=== PATIENT | male | born 1990 | race Caucasian/White ===

== ENCOUNTER 2021-08-15 11:46 | Emergency (ER) | payer OTHER, SELFPAY ==
[2021-08-15 11:55] VITALS: BP 144/92; PULSE 88; RESP 19; TEMP 36.6; O2SAT 97; BMI 37.2
--- NOTE | 2021-08-15 12:08 | ECG_ITS ---
Test Reason : tased Blood Pressure : / mmHG Vent. Rate : 085 BPM Atrial Rate : 085 BPM P-R Int : 160 ms QRS Dur : 102 ms QT Int : 358 ms P-R-T Axes : 031 017 006 degrees QTc Int : 426 ms Normal sinus rhythm Normal EKG No previous ECGs available Referred By: Elaine Eddy Electronically Signed By:DIANE HU
--- NOTE | 2021-08-15 12:10 | ED_ITS ---
HPI - General Adult General Chief complaint: General Medical Stated complaint: tazed Time Seen by Provider: 08/15/21 12:08 Source: patient Mode of arrival: ambulatory Limitations: no limitations History of Present Illness HPI narrative: This is a 31-year-old male with no known medical history presenting to he emergency department status post work related injury with complaints of right- sided arm pain status post being tased in the arm. 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 He tells me he is having 10/10 pain in the little bit of tingling to his right arm. Denies chest pain, shortness of breath, fevers, chills, nausea, vomiting, diarrhea, weakness, headache, dizziness. Patient did not fall no LOC. Onset (ago): hour(s) (1) Location: right and upper extremity Radiation: non-radiation Severity: moderate Quality: constant Pain Consistency: constant Relieving factors: none Exacerbating factors: none Associated symptoms: denies other symptoms Treatments prior to arrival: none Related Data Allergies Allergy/AdvReac Type Severity Reaction Status Date / Time Unable to Assess Allergy Verified 08/15/21 12:08 Review of Systems Verdana 4l Review of Systems: Verdana 4d Verdana 4d Constitutional : No Weight loss, No Fever, No Chills, No Fatigue, No Malaise ENT/Mouth : No sore throat, No Rhinorrhea Eyes: No Eye Pain, No Swelling, No Redness Cardiovascular : No Chest Pain, No SOB, No Dyspnea on Exertion, No OrthopneaOrthopnea, No Edema, No Palpitations Respiratory : No Cough, No Sputum, No Wheezing Gastrointestinal : No Nausea, No Vomiting, No Diarrhea, No Constipation, No abdominal Pain, No Hematochezia, No Melena Genitourinary : No Dysuria, No Urinary Frequency, No Hematuria, Musculoskeletal : No joint pain, No Myalgias, No Joint Swelling, + right arm pain Skin : No Skin Lesions, No rash Neuro : No Weakness, No Numbness, No Dizziness, No Headache All other systems reviewed and are negative Yes all other systems are reviewed and are negative PMFSH Past Medical History Attestation statement: The following information was validated with the patient. Source: old records reviewed and nursing notes reviewed Medical History (Updated 08/15/21 @ 12:15 by IMANI Zambrano) Anxiety Sleep apnea Social History Social History Advance Directives: No Advance Directives Information Provided: No Physical Exam Verdana 4l Vital Signs: Verdana 4d Verdana 4d Vital Signs: Verdana 4d Verdana 4Bd Last Vital Signs Verdana 4d Clinical Systems Analyst New 4d Clinical Systems Analyst New 4d Temp 98 F 08/15/21 11:55 Clinical Systems Analyst New 4d Pulse 88 08/15/21 11:55 Clinical Systems Analyst New 4d Resp 19 08/15/21 11:55 BP 144/92 H 08/15/21 11:55 Pulse Ox 97 08/15/21 11:55 BMI result Body Mass Index 37.2 VSS Appearance: Alert.? Oriented X3.? No acute distress.? Head: Normocephalic, atraumatic, no step-offs or deformities Eyes: Pupils equal, round and reactive to light.? ENT: Pharynx normal.? Neck: Normal inspection.? Neck supple.? CVS: Normal heart rate and rhythm.? Pulses normal.? Respiratory: No respiratory distress.? Breath sounds normal.? Abdomen: Soft and nontender.? Skin: Skin warm and dry.? Normal skin color.? Normal skin turgor.? Extremities: No lower extremity edema.? No calf ttp. 5/5 strength to bilateral upper and lower extremities Back: No midline tenderness, no C-spine tenderness, full range of motion, no CVA tenderness bilaterally Neuro: Oriented X 3.? No motor deficit.? No sensory deficit. Course Reevaluation(s) Reevaluation #1: EKG nonischemic. Toradol given with relief. Patient is safe for discharge home with PCP follow-up. I have also advised him to follow-up with the were connection. Comfortable with discharge home. Time: 13:05 Medical Decision Making MDM Narrative Medical decision making narrative: 1213 31 yo m presents with right hand pain s/p being tazed in the right arm PE benign Plan- EKG and toradol Medical Records Medical records reviewed: Yes I reviewed the patient's medical records. Lab Data Lab results reviewed: Yes I reviewed the patient's lab results. ECG Data Attestation: I personally reviewed and interpreted this ECG as follows: Prior ECG tracings: not available for review Interpretation: Ventricular rate of 85, IL normal, QRS normal, QT / QTC normal. EKG shows normal sinus rhythm, no ST elevations or inversions concerning for ischemia. Previous to compare with Critical Care Time Critical Care Time Critical Care Time: No Discharge Plan Discharge Clinical Impression: Electric shock caused by Taser, Work related injury Patient Disposition: Home, Self-Care Additional Instructions: Take your medications as prescribed. If you were prescribed antibiotics today, it is important that you take your medication to their entirety, do not skip any doses, do not finish them early. Follow-up with your primary care provider this week. follow-up with the were connection at [facility] phone # [phone] Return to the emergency department with new or worsening symptoms. In case of emergency call 911 Referrals: Trisha Beth NP [Primary Care Provider] - 2 days Stand Alone Forms: Work/School Release
[2021-08-15] MEDS: Ketorolac Tromethamine 30 MG/ML VIAL IM (12:24)
--- NOTE | 2021-08-15 13:25 | MHC.MBSS ---
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 Patient felt shock travel up right arm. Reports continued right arm pain. Denies other symptoms. Respirations regular and even. Skin PWD. Alert and oriented. Patient medicated with Toradol, tolerated well. EKG obtained.
== END 2021-08-15 13:29 | disposition home or self-care (01) ==
PROVIDERS: Emergency Provider Emergency Medicine; PCP Nurse Practitioner Family
DX: S49.91XA Unspecified injury of right shoulder and upper arm, initial encounter (principal); M79.601 Pain in right arm; Y29.XXXA Contact with blunt object, undetermined intent, initial encounter; Y93.9 Activity, unspecified; Y92.9 Unspecified place or not applicable; Y99.0 Civilian activity done for income or pay
CPT/HCPCS: 93005; 96372; 99284; J1885

== ENCOUNTER 2021-09-26 05:28 | Emergency (ER) | payer OTHER, SELFPAY ==
--- NOTE | ~2021-09-26 | XR_ITS ---
EXAMINATION: XR ANKLE, RIGHT CLINICAL INFORMATION: Swelling, heard pop COMPARISON: None TECHNIQUE: AP, lateral, and mortise views of the right ankle. FINDINGS: Osseous alignment is anatomic. Joint spaces are maintained. No acute fracture is seen. Mild soft tissue swelling is noted about the ankle. XR/XR ankle RT min 3V IMPRESSION: Mild soft tissue swelling without acute osseous findings.
[2021-09-26 05:33] VITALS: BP 123/78; PULSE 92; RESP 16; TEMP 36.4; O2SAT 98; BMI 37.2
--- NOTE | 2021-09-26 05:59 | PC.NURSE ---
pt to room #1 with c/o ankle pain and ankle swelling since yesterday. pt alert, respirations easy, n/l. skin w/d. pt refusing ice pack at this time. pt awaiting for 's eval.
--- NOTE | 2021-09-26 06:23 | ED_ITS ---
HPI - Extremity Injury (Lower) General Chief Complaint: Extremity Injury, Lower Stated Complaint: swollen/broken ankle Time Seen by Provider: 09/26/21 06:20 Source: patient Mode of arrival: ambulatory Limitations: no limitations History of Present Illness HPI Narrative: Patient comes to emergency room complaining of right-sided ankle pain. Patient states that yesterday he stepped into a hockey-stick and sprained his ankle. Patient denies any injuries anywhere else. Patient complaining of pain in the lateral malleolus. Patient is able to bear weight. Related Data Allergies Allergy/AdvReac Type Severity Reaction Status Date / Time No Known Allergies Allergy Verified 09/26/21 05:36 Review of Systems Review of Systems: Constitutional : No Weight loss, No Fever, No Chills, No Night Sweats, No Fatigue, No Malaise ENT/Mouth : No Hearing loss, No Ear Pain, No Nasal Congestion, No Sinus Pain, No Hoarseness, No sore throat, No Rhinorrhea, No Swallowing Difficulty Eyes: No Eye Pain, No Swelling, No Redness, No Foreign Body, No Discharge, No Vision Changes Cardiovascular : No Chest Pain, No SOB, No Dyspnea on Exertion, No Orthopnea, No Edema, No Palpitations Respiratory : No Cough, No Sputum, No Wheezing, No Smoke Exposure, No Dyspnea Gastrointestinal : No Nausea, No Vomiting, No Diarrhea, No Constipation, No abdominal Pain, No Hematochezia, No Melena Genitourinary : no irregular bleeding, No Dysuria, No Urinary Frequency, No Hematuria, No Urinary Incontinence, No Urgency, No Flank Pain, No Urinary Flow Changes, No Hesitancy Musculoskeletal : Complaining of right ankle pain, No Myalgias, No Joint Swelling Skin : No Skin Lesions, No rash Neuro : No Weakness, No Numbness, No Paresthesias, No Loss of Consciousness, No Dizziness, No Headache Psych : No Anxiety/Panic, No Depression, No SI/HI/AH/VH, No Social Issues, Heme/Lymph: No Bruising, No Bleeding,No Lymphadenopathy Endocrine : No Polyuria, No Polydipsia, No Temperature Intolerance [facility] Past Medical History Medical History Anxiety Sleep apnea Social History Social History Alcohol intake: never Patient Tobacco Use Status: Never used Tobacco Advance Directives: No Advance Directives Information Provided: Yes Physical Exam Vital Signs: Vital Signs: Last Vital Signs Temp 97.6 F 09/26/21 05:33 Pulse 92 09/26/21 05:33 Resp 16 09/26/21 05:33 BP 123/78 09/26/21 05:33 Pulse Ox 98 09/26/21 05:33 BMI result Body Mass Index 37.2 Const: Other: Appearance: Alert. Oriented X3. No acute distress. Eyes: Pupils equal, round and reactive to light. ENT: Pharynx normal. Neck: Normal inspection. Neck supple. No lymph nodes noted. No crepitus CVS: Normal heart rate and rhythm. Pulses normal. Normal S1 and S2 Respiratory: No respiratory distress. Breath sounds normal. No Wheezing. No rales Abdomen: Soft and nontender. No rigidity. No distention. Skin: Skin warm and dry. Normal skin color. Normal skin turgor. Extremities: Pain to palpation over the lateral malleolus on the right ankle, mild swelling, patient able to bear weight, walk limping. Neuro: Oriented X 3. No motor deficit. No sensory deficit. Moving all extremities. No slurred speech. CN 2 through 12 grossly intact Psych: calm, cooperative, normal affect Course Course Course Narrative: I discussed the x-ray with the patient, no fracture. Patient states that he is able to bear weight, declined crutches, states he has ibuprofen and Tylenol at home. MDM - Extremity Injury (Lower) Imaging Data Ankle x-ray: Radiologist's impression: Osseous alignment is anatomic. Joint spaces are maintained. No acute fracture is seen. Mild soft tissue swelling is noted about the ankle. XR/XR ankle RT min 3V IMPRESSION: Mild soft tissue swelling without acute osseous findings Discharge Plan Discharge Clinical Impression: Ankle sprain and strain Patient Disposition: Home, Self-Care Instructions: Ankle Sprain (ED) Additional Instructions: Please follow-up with your primary care physician tomorrow. If you have any worsening or new symptoms, please return to the emergency room or call 911
== END 2021-09-26 07:01 | disposition home or self-care (01) ==
PROVIDERS: Emergency Provider Emergency Medicine
DX: S93.401A Sprain of unspecified ligament of right ankle, initial encounter (principal); X58.XXXA Exposure to other specified factors, initial encounter; Y93.9 Activity, unspecified; Y92.9 Unspecified place or not applicable; Y99.9 Unspecified external cause status
CPT/HCPCS: 73610; 99283

== ENCOUNTER 2022-12-04 12:16 | Emergency (ER) | payer OTHER, SELFPAY ==
[2022-12-04 12:20] VITALS: BP 147/89; PULSE 99; RESP 18; TEMP 37; O2SAT 99; BMI 36.6
--- NOTE | 2022-12-04 12:48 | ED_ITS ---
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 Patient immediately irrigated both eyes in oral cavity. No obvious blood was mostly gastric contents. Patient denies any medical history other than sleep apnea no other complaints this time. Patient was advised bites department to be evaluated. Related Information Allergies Allergy/AdvReac Type Severity Reaction Status Date / Time No Known Allergies Allergy Verified 09/26/21 05:36 Review of Systems Review of Systems: General: No fever, no chills Ophthalmology: No vision changes, no discharge ENT: No sore throat, no ear pain Cardiovascular: No chest pain Respiratory: No dyspnea GI: No nausea vomiting PMFSH Past Medical History Attestation statement: The following information was validated with the patient. Medical History Anxiety Sleep apnea Social History Social History Alcohol intake: never Patient Tobacco Use Status: Never used Tobacco Advance Directives: No Advance Directives Information Provided: Yes Physical Exam Vital Signs: Vital Signs: Last Vital Signs Temp 98.6 F 12/04/22 12:20 Pulse 99 12/04/22 12:20 Resp 18 12/04/22 12:20 BP 147/89 H 12/04/22 12:20 Pulse Ox 99 12/04/22 12:20 O2 Del Method Room Air 12/04/22 12:20 BMI result Body Mass Index 36.6 General appearance: Awake, alert, cooperative, in no acute distress Skin: Warm, dry, no rash Eyes: PERRL, EOMI, no icterus ENT: Oropharynx normal, uvula midline Neck: Soft supple full range of motion Extremities: Patient ambulatory moving all extremities Neuro: Alert oriented x3, no focal deficit Psych: Normal affect Course Course Course Narrative: Body fluid exposure Prophylaxis 32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 Patient states droplets his eyes and oral cavity which immediately irrigated patient states overall was a low amount of exposure. Case discussed with Dr. Mireles please overall exposure very low risk. Would not add prophylaxis at this time patient feels comfortable without prophylaxis. Case discussed at length with patient. Will check baseline labs at this time the CBC CMP hepatitis panel and HIV. For follow-up with [facility]. Medical Decision Making Lab Data 12/04/22 13:06 12/04/22 13:06 Labs: Lab Results 12/04/22 Range/Units 13:06 WBC 10.7 (4.8-10.8) X10*3/uL RBC 5.37 (4.60-5.80) X10*6/uL Hgb 15.2 (14.0-18.0) g/dl Hct 44.6 (42.0-52.0) % MCV 83.1 (80.0-98.0) fL MCH 28.3 (27.0-33.0) pg MCHC 34.1 (31.0-36.0) g/dl RDW 13.2 (11.0-16.0) % Plt Count 291 (160-400) X10*3/uL MPV 10.6 (9.4-12.4) fL Immature Gran % (Auto) 0.4 (0.0-0.4) % Neut % (Auto) 51.2 (45-73) % Lymph % (Auto) 32.8 (20-40) % [place] % (Auto) 10.7 (2-11) % Eos % (Auto) 3.4 (0-4) % Baso % (Auto) 1.5 (0-2) % Lymph # (Auto) 3.5 (1.2-4.9) X10*3/uL [place] # (Auto) 1.2 (0.1-1.2) X10*3/uL Eos # (Auto) 0.4 (0.0-0.4) X10*3/uL Baso # (Auto) 0.2 (0.0-0.2) X10*3/uL Abs Immat Gran (auto) 0.04 H (0.00-0.03) X10*3/uL Absolute Neuts (auto) 5.5 (2.0-8.3) x10*3/uL Absolute Nucleated RBC 0.000 (0.0-0.012) X10*3/uL Nucleated RBC % (auto) 0.0 (0.0-0.2) /100WBC Discharge Plan Discharge Clinical Impression: Employee exposure to body fluids Patient Disposition: Home, Self-Care Additional Instructions: Body fluid exposures considered very low risk as is vomitus in oral mucosa and I mucosa At this time we do baseline labs of a CBC CMP HIV and hepatitis panel for your follow-up with the [facility] healthcare provider
[2022-12-04 13:11] LABS: MANUAL DIFF FLAG NO
[2022-12-04 13:15] LABS: Basophils Absolute Auto 0.2 X10*3/uL (0.0-0.2); Basophils Percent Auto 1.5 % (0-2); Eosinophils Absolute Auto 0.4 X10*3/uL (0.0-0.4); Eosinophils Percent Auto 3.4 % (0-4); Hematocrit 44.6 % (42.0-52.0); Hemoglobin 15.2 g/dl (14.0-18.0); Imm Gran Abs Auto 0.04 X10*3/uL (0.00-0.03); Imm Gran Pct Auto 0.4 % (0.0-0.4); Lymphocytes Absolute Auto 3.5 X10*3/uL (1.2-4.9); Lymphocytes Percent Auto 32.8 % (20-40); Mean Corpuscular HGB Conc 34.1 g/dl (31.0-36.0); Mean Corpuscular Hemoglobin 28.3 pg (27.0-33.0); Mean Corpuscular Volume 83.1 fL (80.0-98.0); Mean Platelet Volume 10.6 fL (9.4-12.4); Monocytes Absolute Auto 1.2 X10*3/uL (0.1-1.2); Monocytes Percent Auto 10.7 % (2-11); Neutrophils Absolute Auto 5.5 x10*3/uL (2.0-8.3); Neutrophils Percent Auto 51.2 % (45-73); Platelet Count 291 X10*3/uL (160-400); Red Blood Count 5.37 X10*6/uL (4.60-5.80); Red Cell Distribution Width 13.2 % (11.0-16.0); White Blood Count 10.7 X10*3/uL (4.8-10.8)
[2022-12-04 13:57] LABS: Alanine Aminotransferase 85 U/L (0-40); Albumin Level 4.5 g/dL (3.5-5.0); Alkaline Phosphatase 117 U/L (39-117); Anion Gap 12 (12-20); Aspartate Amino Transferase 33 U/L (5-37); Bilirubin Total 0.5 mg/dL (0.0-1.0); Blood Urea Nitrogen 11 mg/dL (9-16); Calcium 9.7 mg/dL (8.4-10.2); Carbon Dioxide 27 mmol/L (22-29); Chloride 103 mmol/L (96-108); Creatinine Clr Calc Pharmacy 153.4; Estimated Glomerular Filt Rate > 60; Glucose Random 115 mg/dL (60-115); Sodium 138 mmol/L (135-145); Total Protein 7.7 g/dL (6.5-8.0)
[2022-12-05 04:27] LABS: HBS Num1 > 1000.00 mIU/mL (0-7.99); HBc Num1 0.08 S/CO (0.00-0.79); HBsAGNum1 0.25 S/CO (0.00-0.99); HIV AB/AG Nonreactive (Nonreactive); HIV Num 1 0.06 S/CO (0.00-0.99); Hepatitis A Antibody IgM 0.14 Index (0-0.79); Hepatitis B Core Antibody Nonreactive (Nonreactive); Hepatitis B Surface Antigen Negative (Negative); ~Hepatitis A Antibody IgM Nonreactive (Nonreactive); ~Hepatitis B Surface Antibody REACTIVE (Nonreactive); ~Hepatitis C Antibody Nonreactive (Nonreactive)
== END 2022-12-04 13:34 | disposition home or self-care (01) ==
PROVIDERS: Physician Assistant; Emergency Provider Emergency Medicine Emergency Medical Services; PCP Nurse Practitioner Family
DX: Z20.828 Contact with and (suspected) exposure to other viral communicable diseases (principal); Z79.899 Other long term (current) drug therapy
CPT/HCPCS: 36415; 80053; 85025; 86704; 86706; 86709; 86803; 87340; 87389; 99282; 99283

== ENCOUNTER 2024-06-18 10:30 | Emergency (ER) | payer OTHER, SELFPAY ==
[2024-06-18 10:55] VITALS: BP 141/83; PULSE 105; RESP 18; TEMP 37.3; O2SAT 98; BMI 37.2
[2024-06-18 11:21] LABS: MANUAL DIFF FLAG NO
[2024-06-18 11:25] LABS: Basophils Absolute Auto 0.1 X10*3/uL (0.0-0.2); Basophils Percent Auto 0.5 % (0-2); Eosinophils Absolute Auto 0.1 X10*3/uL (0.0-0.4); Eosinophils Percent Auto 0.7 % (0-4); Hematocrit 45.4 % (42.0-52.0); Hemoglobin 15.4 g/dl (14.0-18.0); Imm Gran Abs Auto 0.05 X10*3/uL (0.00-0.03); Imm Gran Pct Auto 0.4 % (0.0-0.4); Lymphocytes Absolute Auto 0.9 X10*3/uL (1.2-4.9); Lymphocytes Percent Auto 7.5 % (20-40); Mean Corpuscular HGB Conc 33.9 g/dl (31.0-36.0); Mean Corpuscular Hemoglobin 28.6 pg (27.0-33.0); Mean Corpuscular Volume 84.2 fL (80.0-98.0); Monocytes Absolute Auto 1.2 X10*3/uL (0.1-1.2); Monocytes Percent Auto 9.6 % (2-11); Neutrophils Percent Auto 81.3 % (45-73); Platelet Count 222 X10*3/uL (160-400); Red Blood Count 5.39 X10*6/uL (4.60-5.80); Red Cell Distribution Width 13.1 % (11.0-16.0); White Blood Count 12.2 X10*3/uL (4.8-10.8)
[2024-06-18 11:41] LABS: Alanine Aminotransferase 90 U/L (0-40); Albumin Level 4.4 g/dL (3.5-5.0); Alkaline Phosphatase 106 U/L (39-117); Anion Gap 13 (12-20); Aspartate Amino Transferase 47 U/L (5-37); Blood Urea Nitrogen 16 mg/dL (9-16); Calcium 9.1 mg/dL (8.4-10.2); Carbon Dioxide 25 mmol/L (22-29); Chloride 105 mmol/L (96-108); Creatinine Clr Calc Pharmacy 131.1; Estimated Glomerular Filt Rate > 60; Glucose Random 187 mg/dL (60-115); Potassium 3.6 mmol/L (3.3-5.1); Sodium 139 mmol/L (135-145); Total Protein 7.5 g/dL (6.5-8.0)
[2024-06-18 16:05] VITALS: BP 114/50; PULSE 91; RESP 18; TEMP 37; O2SAT 96
--- NOTE | 2024-06-18 16:33 | ED.GENADULT ---
HPI - General Adult General Chief complaint: Nausea/Vomiting/Diarrhea Stated complaint: Vomiting blood Time Seen by Provider: 06/18/24 15:59 History of Present Illness ED Provider: Drew HPI narrative: This is a 33-year-old male presents with 1 day of nausea, vomiting, and diarrhea. Patient reports that he felt feverish, however did not take a temperature. He did try taking some Advil/Tylenol which he did throw up. 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 He reports he grew concerned when he was seen bright red specks in his vomit which he believes it is blood. He is able to keep down fluids at this time. He reports some mild tenderness in his abdomen. Denies any history abdominal surgeries Related Data Previous Rx's ?Medication ?Instructions ?Recorded ondansetron 4 mg disintegrating 4 mg PO Q8H PRN nausea and 06/18/24 tablet vomiting #20 tabs Allergies Allergy/AdvReac Type Severity Reaction Status Date / Time No Known Allergies Allergy Verified 06/18/24 10:56 Review of Systems Constitutional: Constitutional: Reports headache(s) ENT: Reports headache(s) Gastrointestinal: Gastrointestinal: Reports bloating, Denies coffee ground emesis, Reports diarrhea, Reports nausea and Reports vomiting Neurologic: Reports headache(s) PMFSH Past Medical History Medical History Anxiety Sleep apnea Social History Social History Alcohol intake: current Alcohol intake frequency: holidays/special occasions only Patient Tobacco Use Status: Never used Tobacco Smoked in Last 30 Days: Yes Use of substances other than those prescribed or required for medical reasons: No Advance Directives: No Advance Directives Information Provided: Yes Do you have a plan to hurt others: No Plan Physical Exam ED Vital Signs: Vital Signs - 24 hr 06/18/24 10:55 06/18/24 16:05 Temperature 99.1 F 98.6 F Pulse Rate 105 H 91 Respiratory Rate 18 18 Blood Pressure 141/83 H 114/50 L Pulse Oximetry 98 96 Oxygen Delivery Method Room Air Room Air BMI result Body Mass Index 37.2 Const General: healthy appearing, comfortable, no acute distress, alert and awake Nutritional Appearance: well nourished Orientation/consciousness: patient oriented x3 [facility] Head: Yes normocephalic and Yes atraumatic Throat: Yes posterior oropharynx normal Eyes Eyelids: Yes eyelids normal Conjunctivae: conjunctivae normal Sclerae: sclerae normal Corneas: corneas normal Pupils: Equal, round and reactive pupils present EOM: EOMs intact bilaterally Neck Neck: Yes full ROM Resp Effort & Inspection: normal respiratory effort, able to speak in complete sentences and not labored GI Other: Abdomen is soft, round, with mild generalized tenderness to palpation. No rebound or guarding No overlying skin changes. Inspection: No distended Palpation (GI): Soft to palpation, not firm, nontender, no guarding and not rigid Skin General skin exam: elasticity normal Neuro General: patient oriented x3 Cranial nerves: Yes Equal, round and reactive pupils present and Yes Bilaterally intact EOM present Cognition (Neuro): normal cognition Extrem Other: Moving all extremities well without any obvious deformities Medical Decision Making Medical Decision Making [facility] Narrative: 33-year-old male presents for evaluation of a 1 day history of nausea and vomiting. Physical exam is reassuring, he was tachycardic on arrival this resolved without intervention. His labs are significant for a mild leukocytosis which is likely reactive to his vomiting. He has a left shift and a very slight transaminitis. Otherwise labs are reassuring. His abdominal exam is benign. Consider CT scan of the abdomen pelvis and a very low suspicion for surgical pathology. The patient discharged with symptomatic treatment. He reports specks of red in his vomitus but his H&H is 15.4 and 45.4 respectively. There is no jaylon GI bleed Differential Diagnosis Differential Diagnoses: The differential diagnosis associated with the presentation includes Gastroenteritis Viral syndrome Upper respiratory infection COVID-19 Influenza Gastritis Peptic ulcer disease Upper GI bleed Lab Data [facility] Lab Attestation statement: I reviewed the patient's lab results. Please see above 06/18/24 11:14 06/18/24 11:14 Labs: Lab Results 06/18/24 Range/Units 11:14 WBC 12.2 H (4.8-10.8) X10*3/uL RBC 5.39 (4.60-5.80) X10*6/uL Hgb 15.4 (14.0-18.0) g/dl Hct 45.4 (42.0-52.0) % MCV 84.2 (80.0-98.0) fL MCH 28.6 (27.0-33.0) pg MCHC 33.9 (31.0-36.0) g/dl RDW 13.1 (11.0-16.0) % Plt Count 222 (160-400) X10*3/uL MPV 11.0 (9.4-12.4) fL Immature Gran % (Auto) 0.4 (0.0-0.4) % Neut % (Auto) 81.3 H (45-73) % Lymph % (Auto) 7.5 L (20-40) % [place] % (Auto) 9.6 (2-11) % Eos % (Auto) 0.7 (0-4) % Baso % (Auto) 0.5 (0-2) % Lymph # (Auto) 0.9 L (1.2-4.9) X10*3/uL [place] # (Auto) 1.2 (0.1-1.2) X10*3/uL Eos # (Auto) 0.1 (0.0-0.4) X10*3/uL Baso # (Auto) 0.1 (0.0-0.2) X10*3/uL Abs Immat Gran (auto) 0.05 H (0.00-0.03) X10*3/uL Absolute Neuts (auto) 10.0 H (2.0-8.3) x10*3/uL Absolute Nucleated RBC 0.000 (0.0-0.012) X10*3/uL Nucleated RBC % (auto) 0.0 (0.0-0.2) /100WBC Sodium 139 (135-145) mmol/L Potassium 3.6 (3.3-5.1) mmol/L Chloride 105 (96-108) mmol/L Carbon Dioxide 25 (22-29) mmol/L Anion Gap 13 (12-20) BUN 16 (9-16) mg/dL Creatinine 0.96 (0.5-1.4) mg/dL Estim Creat Clear Calc 131.1 Estimated GFR > 60 Random Glucose 187 H (60-115) mg/dL Calcium 9.1 D (8.4-10.2) mg/dL Total Bilirubin 1.0 (0.0-1.0) mg/dL AST 47 H (5-37) U/L ALT 90 H (0-40) U/L Alkaline Phosphatase 106 (39-117) U/L Total Protein 7.5 (6.5-8.0) g/dL Albumin 4.4 (3.5-5.0) g/dL Discharge Plan Discharge Clinical Impression: Acute nausea with nonbilious vomiting Patient Disposition: Home, Self-Care Instructions: Acute Nausea and Vomiting (ED) Additional Instructions: Your workup in the ER today was reassuring. Drink lots of fluids, small sips at a time. You may use Zofran as needed for nausea and vomiting Follow-up with your primary doctor return for new or worsening symptoms Prescriptions: New ondansetron 4 mg tablet,disintegrating 4 mg PO Q8H PRN (Reason: nausea and vomiting) Qty: 20 0RF Stand Alone Forms: Work/School Release Print Language: Upper Sorbian
--- NOTE | 2024-06-18 16:43 | PC.NURSE ---
patient a&ox3, pt previously had labs drawn in triage, pt states he has 1/10 mid abd pain- painful upon palpation only. pt states he also has nausea. vitals stable, awaiting providers orders, call juan within reach, will continue to monitor
[2024-06-18 16:44] VITALS: BP 121/56; PULSE 93; RESP 18; TEMP 36.9; O2SAT 96
== END 2024-06-18 16:49 | disposition home or self-care (01) ==
PROVIDERS: Emergency Provider Emergency Medicine Emergency Medical Services; PCP Nurse Practitioner Family
DX: R11.2 Nausea with vomiting, unspecified (principal); R19.7 Diarrhea, unspecified; R50.9 Fever, unspecified; R10.819 Abdominal tenderness, unspecified site
CPT/HCPCS: 36415; 80053; 85025; 99283; 99284

== ENCOUNTER 2025-03-17 21:29 | Emergency (ER) | payer OTHER, SELFPAY ==
--- NOTE | ~2025-03-17 | XR_ITS ---
CLINICAL HISTORY: pain felt pop. Left knee two views Comparison: None provided Findings: No acute fracture or dislocation noted. No significant joint effusion identified. No soft tissue foreign body. Impression: No acute bony abnormality This document has been electronically signed by: David Marks MD on 03/17/2025 22:48:27
[2025-03-17 21:33] VITALS: BP 135/80; PULSE 103; RESP 18; TEMP 37.3; O2SAT 95; BMI 36.2
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
[2025-03-18 00:59] VITALS: BP 135/80; PULSE 103; RESP 18; TEMP 37.3; O2SAT 95
== END 2025-03-18 00:59 | disposition home or self-care (01) ==
PROVIDERS: Emergency Provider Emergency Medicine; PCP Nurse Practitioner Family
DX: M25.462 Effusion, left knee (principal); M25.562 Pain in left knee
CPT/HCPCS: 73560; 99282; 99283

== ENCOUNTER → 2025-03-17 21:47 | Outpatient (BNV) | payer OTHER, SELFPAY | PROVIDERS: PCP Nurse Practitioner Family; Visit Provider Radiology Diagnostic Radiology | DX: M25.562 Pain in left knee (principal) | CPT/HCPCS: 73560 ==

== ENCOUNTER → 2025-03-19 13:32 | Outpatient (BNVA) | payer OTHER, SELFPAY | PROVIDERS: PCP Nurse Practitioner Family; Visit Provider Physician Assistant Medical | DX: S83.92XA Sprain of unspecified site of left knee, initial encounter (principal); X50.1XXA Overexertion from prolonged static or awkward postures, initial encounter | CPT/HCPCS: 99203 ==

== ENCOUNTER → 2025-03-26 09:13 | Outpatient (BNVA) | payer OTHER, SELFPAY | PROVIDERS: PCP Nurse Practitioner Family; Visit Provider Internal Medicine | DX: M23.92 Unspecified internal derangement of left knee (principal) | CPT/HCPCS: 99213 ==

== ENCOUNTER 2025-03-26 18:01 | Outpatient (REF) | payer OTHER, SELFPAY ==
--- NOTE | ~2025-03-26 | MR_ITS ---
CLINICAL HISTORY: LIMITED ROM AND WEAKNESS MR left knee without contrast Comparison: CR - XR KNEE LT 2V - 03/17/25 21:51 EDT Findings: The medial and lateral menisci are intact. The anterior and posterior cruciate ligaments are intact. The medial and lateral collateral ligaments are intact without periligamentous edema. No edema in the posterior lateral corner. The extensor mechanism is intact. No joint effusion. No Johnson's cyst. No fracture, stress reaction or osseous lesion. No hyaline cartilage disease in the patellofemoral, medial and lateral compartments. Impression: Normal menisci. No cruciate or collateral ligament tears. No osseous or cartilaginous abnormality. This document has been electronically signed by: Irlanda Vu MD on 03/27/2025 15:17:35
== END 2025-03-26 18:02 | disposition home or self-care (01) ==
LOC: HO.MRI 18:01
PROVIDERS: PCP Nurse Practitioner Family; Visit Provider Internal Medicine
DX: M25.361 Other instability, right knee (principal)
CPT/HCPCS: 73721

== ENCOUNTER → 2025-03-26 18:02 | Outpatient (BNV) | payer OTHER, SELFPAY | PROVIDERS: PCP Nurse Practitioner Family; Visit Provider Radiology Diagnostic Radiology | DX: R53.1 Weakness (principal) | CPT/HCPCS: 73721 ==

== ENCOUNTER 2025-04-02 07:58 | Outpatient (REF) | payer OTHER, SELFPAY ==
--- NOTE | ~2025-04-02 | XR_ITS ---
EXAMINATION: XR KNEE, LEFT CLINICAL INFORMATION: M25.562 - Pain in left knee COMPARISON: Radiographs of the left knee on March 17, 2025 TECHNIQUE: Single view of the left knee. FINDINGS: No fracture or malalignment in this single view. Patellofemoral joint space is preserved. Soft tissues appear unremarkable. XR/XR knee LT 1V IMPRESSION: Unremarkable single view. Electronically signed by: Joshua Christianson MD 04/02/2025 10:51 AM EDT
== END 2025-04-02 07:59 | disposition home or self-care (01) ==
LOC: HO.HOSX 07:58
PROVIDERS: Visit Provider Physician Assistant
DX: S83.002A Unspecified subluxation of left patella, initial encounter (principal); M17.12 Unilateral primary osteoarthritis, left knee; X50.1XXA Overexertion from prolonged static or awkward postures, initial encounter; Y99.0 Civilian activity done for income or pay; Y93.01 Activity, walking, marching and hiking
CPT/HCPCS: 73560; 99202

== ENCOUNTER 2025-04-02 10:26 | Outpatient (AMB) | payer OTHER, SELFPAY ==
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
[2025-04-02 10:34] VITALS: BMI 36.2
== END 2025-04-02 11:10 | disposition home or self-care (01) ==
LOC: HO.HOS 10:27
PROVIDERS: PCP Nurse Practitioner Family; Visit Provider Physician Assistant
DX: S83.002A Unspecified subluxation of left patella, initial encounter (principal)
CPT/HCPCS: 99203; G2211

== ENCOUNTER → 2025-04-02 10:28 | Outpatient (BNV) | payer OTHER, SELFPAY | PROVIDERS: Visit Provider Radiology Body Imaging | DX: M25.562 Pain in left knee (principal) | CPT/HCPCS: 73560 ==

== ENCOUNTER 2025-04-30 10:49 | Outpatient (AMB) | payer OTHER, SELFPAY ==
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
== END 2025-04-30 11:38 | disposition home or self-care (01) ==
LOC: HO.HOS 10:50
PROVIDERS: PCP Nurse Practitioner Family; Visit Provider Physician Assistant
DX: S83.002A Unspecified subluxation of left patella, initial encounter (principal)
CPT/HCPCS: 99213; G2211

== ENCOUNTER → 2025-04-30 10:49 | Outpatient (BNVA) | payer OTHER, SELFPAY | PROVIDERS: PCP Nurse Practitioner Family; Visit Provider Physician Assistant | DX: S83.002A Unspecified subluxation of left patella, initial encounter (principal) | CPT/HCPCS: 99212 ==

== ENCOUNTER 2025-05-01 11:59 | Outpatient (RCR) | payer OTHER, SELFPAY ==
--- NOTE | 2025-04-09 16:57 | MHC.PT.EP ---
[facility] [place] Office [place] Office [place] Office [address] Valerie Loyola [address] [phone] F: [phone] F: [phone] F: [phone] F: [phone] Physical Therapy Plan of Care Date of Evaluation: 04/09/25 Date of Surgery: N/A Diagnosis: subluxation of left patella (RL) Assessment: pt is a 34 y/o male presenting to physical therapy w/ referring diagnosis of subluxation of left patella. He does present w/ increased laxity to L tibiofemoral joint as well as signs of potential hx of patellar subluxation. Will continue to monitor and refer as appropriate. Impairments include pain, decreased range of motion, decreased strength, impaired functional mobility, impaired postural awareness, and altered ambulation mechanics. pt is a good candidate for skilled PT due to age, potential remediation of impairments, typical disease/condition progression and prognosis, comorbidities, and motivation. pt would benefit from skilled PT intervention to provide a tailored strengthening and stretching exercise program, functional training, gait training, postural re-training, neuromuscular re-education, modalities as needed for pain, equipment safety demonstration. Frequency and Duration: The patient will be seen 2x/wk for 4 wks Short Term Goals: pt will be I w/ HEP to promote self-management of condition. pt will demo proper squat mechanics for picking up objects from floor to chest height. Jail Goals: pt will report a statistically significant improvement in self-reported outcome measure, LEFI, to promote return to PLOF. pt will demo push/pull of >100# to promote ease to returning to work related tasks. pt will ascend 12 stairs using reciprocal pattern to promote ease in accessing living spaces. Treatment Plan: Modalities to reduce pain, spasms and effusion. Manual therapy to restore motion and function. Therapeutic exercise to improve strength and flexibility. Neuromuscular re-education for posture and balance. Therapeutic activities to return to functional activities of daily living. Electronically signed by: Tressa Galvan PT, DPT Please sign and return to therapist. Thank you for your referral.
--- NOTE | 2025-05-13 16:08 | MHC.PT.DC ---
[facility] [place] Office [place] [facility] [place] [facility] [address] Valerie Loyola [address] [facility] [phone] F: [phone] F: [phone] F: [phone] F: [phone] Physical Therapy Discharge Report Diagnosis: subluxation of left patella (RL) Date of Surgery: N/A Date of Evaluation: 04/09/25 Date of Discharge: 05/13/25 Treatments to Date: 8 Cancellations to Date: 2 No Shows to Date: 0 Discharge Status: Achieved Goals Improved Function Independent with HEP Discharge Summary: The patient was reporting no knee pain by the end of his plan of care. He achieved all goals established at time of discharge. He was discharged with the recommendation to continue with his home exercise program. Electronically signed by: Tressa Galvan PT, DPT Please sign and return to therapist. Thank you for your referral.
== END 2025-05-13 16:08 | disposition home or self-care (01) ==
LOC: HO.PT 11:59
PROVIDERS: PCP Nurse Practitioner Family; Visit Provider Physician Assistant
DX: S83.002D Unspecified subluxation of left patella, subsequent encounter (principal)
CPT/HCPCS: 97110; 97161; 97530